=== PATIENT | male | born 1975 | race Two or more races ===

== ENCOUNTER 2020-07-04 08:10 | Emergency (ER) | payer OTHER ==
[~2020-07-04] VITALS: Ht 170.2 cm; Wt 72.6 kg
[2020-07-04 08:17] VITALS: BP 134/80
--- NOTE | 2020-07-04 09:03 | NUR ---
covid swab sent. Patient discharged to home in stable condition. Written and verbal after care instructions given. Patient verbalizes understanding of instruction.
== END 2020-07-04 09:03 | disposition home or self-care (01) ==
LOC: ER 08:10
DX: Z20.822 Contact with and (suspected) exposure to COVID-19 (principal)
CPT/HCPCS: 99283; C9803; U0003

== ENCOUNTER 2022-12-25 09:38 | Emergency (ER) | payer BC, OTHER ==
[~2022-12-25] VITALS: Ht 172.7 cm; Wt 73.0 kg
[2022-12-25] MEDS ORDERED: IBUP-1953 PO (10:14)
[2022-12-25 10:20] VITALS: BP 128/78; TEMP 98.4; O2SAT 100
[2022-12-25] MEDS ORDERED: IBUPROFEN 600 MG TABLET PO ONE (10:30)
== END 2022-12-25 10:29 | disposition home or self-care (01) ==
LOC: ER 09:46
DX: S20.211A Contusion of right front wall of thorax, initial encounter (principal); Z60.2 Problems related to living alone; V49.9XXA Car occupant (driver) (passenger) injured in unspecified traffic accident, initial encounter; Y93.89 Activity, other specified; Y92.89 Other specified places as the place of occurrence of the external cause; Y99.8 Other external cause status